=== PATIENT | female | born 1955 | race American Indian/Alaskan Native ===

== ENCOUNTER → 2024-12-21 | Outpatient (CLI) | payer MEDICARE, MEDICAID, SELFPAY ==
--- NOTE | 2024-12-21 14:39 | XR_ITS ---
Examination: Knee bilateral, 7 views Technique: Knee AP, lateral, oblique each knee 6 views, bilateral axial knees single view total 7 views Date and time of exam: December 21, 2024 1451 hours INDICATIONS: Bilateral knee pain 10 years. 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
== END | disposition home or self-care (01) ==
PROVIDERS: PCP Nurse Practitioner Family; Referring Provider Internal Medicine; Visit Provider Internal Medicine
DX: M17.0 Bilateral primary osteoarthritis of knee (principal)
CPT/HCPCS: 73564

== ENCOUNTER → 2025-02-25 | Outpatient (CLI) | payer MEDICARE, MEDICAID, SELFPAY ==
--- NOTE | 2025-02-25 16:16 | XR_ITS ---
Examination: CT brain head without contrast. 2-D sagittal coronal reconstructions Date and time of exam:February 25, 2025 1721 hours INDICATION: Patient fell one month ago with injury to the head, persistent head pain CTDI: vol (mGy):47.7 DLP: (mGycm):946 Technique: Multiple CT axial sections of the brain have been obtained, 5 mm slice thickness. Contrast has not been administered. 2-D sagittal, coronal reconstructions have been obtained Low dose protocols were performed. One or more of the following dose reduction techniques were used; automated exposure control, adjustment of the mA and/or KV according to patient size, use of iterative reconstruction technique. Findings: No significant ventricular enlargement. Intra-axial or extra-axial hemorrhage density is not seen. No mass effect or midline shift Basal cisterns are not remarkable. Fourth ventricle is midline. Cranial vault intact. Impression: Negative for acute hemorrhage, mass effect or midline shift
== END | disposition home or self-care (01) ==
LOC: CCTX 16:07
PROVIDERS: Referring Provider Physician Assistant; Visit Provider Physician Assistant
DX: S00.83XA Contusion of other part of head, initial encounter (principal); W19.XXXA Unspecified fall, initial encounter
CPT/HCPCS: 70450

== ENCOUNTER → 2025-04-14 | Outpatient (CLI) | payer MEDICARE, MEDICAID, SELFPAY ==
--- NOTE | 2025-04-14 16:13 | XR_ITS ---
Examination: Knee bilateral, 7 views Technique: Knee AP, lateral, oblique E. Zeb total 6 views, AP bilateral axial knees single view total 7 views Date and time of exam: April 14, 2025 1615 hours INDICATIONS: Bilateral knee pain 3 months. FINDINGS: Moderate osteopenia. Bilateral moderate to advanced degenerative medial joints Bilateral moderate to advanced osteoarthritis patellofemoral joints No fractures No patellar dislocations IMPRESSION: Bilateral moderate to advanced osteoarthritis medial and patellofemoral joints
== END | disposition home or self-care (01) ==
PROVIDERS: PCP Nurse Practitioner Family; Referring Provider Nurse Practitioner Family; Visit Provider Nurse Practitioner Family
DX: M17.0 Bilateral primary osteoarthritis of knee (principal)
CPT/HCPCS: 73564

== ENCOUNTER → 2025-05-24 | Outpatient (CLI) | payer MEDICARE, MEDICAID, SELFPAY ==
--- NOTE | 2025-05-24 14:52 | XR_ITS ---
Examination: Knee bilateral, 7 views Technique: Knee AP, lateral, oblique E stage total 6 views, bilateral AP knees single view total 7 views Date and time of exam: May 24, 2025 at 1458 hours INDICATIONS: Bilateral knee pain beginning 2014. FINDINGS: Bilateral moderate to advanced narrowing medial joint spaces, more severe left knee Bilateral moderate to advanced osteoarthritis patellofemoral joints. No fractures or patellar dislocations No avascular necrosis IMPRESSION: Bilateral moderate to advanced narrowing medial joint spaces Bilateral moderate to advanced osteoarthritis patellofemoral joint
== END | disposition home or self-care (01) ==
LOC: CDIM 14:42
PROVIDERS: PCP Nurse Practitioner Family; Referring Provider Nurse Practitioner Family; Visit Provider Nurse Practitioner Family
DX: M25.862 Other specified joint disorders, left knee (principal); M25.861 Other specified joint disorders, right knee; M17.0 Bilateral primary osteoarthritis of knee
CPT/HCPCS: 73564

== ENCOUNTER → 2025-08-04 | Outpatient (CLI) | payer MEDICARE, MEDICAID, SELFPAY ==
--- NOTE | 2025-08-04 10:45 | XR_ITS ---
Examination: Breast ultrasound complete, bilateral Date and time of exam: August 04, 2025, 1032 hours INDICATIONS: Mammogram 05.17 1624 mm nodule retroareolar region left breast, history left breast biopsy 2013, negative Technique: Real-time grayscale ultrasonographic imaging bilateral breasts, including all 4 quadrants as well as nipple retroareolar and axillary regions. Findings: Sonographic images right breast 1:00 cyst 5 x 3 mm 10:00 nodule circumscribed 9 x 10 mm 10:00 nodule lobular margins 9 x 13 mm 11:00 nodule lobular margins 7 x 6 mm Sonographic images left breast 1:00 cyst 7 x 7 mm No solid nodules IMPRESSION: BI-RADS Category 3: Probably benign findings 1 additional 3 to 6-month right breast sonogram follow-up is needed to document stability of multiple solid nodules right breast described above
--- NOTE | 2025-08-04 11:45 | XR_ITS ---
Examination: Diagnostic digital mammography, bilateral Computer aided detection 3-D breast Tomosynthesis, bilateral Date and time of exam: 08/04/2025, 1009 Comparisons:. January 16, 2017 Indications: History of right breast biopsy.. Mother with breast cancer Technique: Nonmagnified MLO, CC views of the breasts to been obtained, reconstructed from 3-D Tomosynthesis images. R2 computer aided detection program utilized for evaluation of suspicious masses and/or abnormal calcifications. 3-D Tomosynthesis images obtained. Findings: The breasts are heterogeneously dense, which may obscure small masses. No evidence of abnormal masses or suspicious calcifications. Stable left post biopsy marker clip Impression: BI-RADS category 2: Benign findings Recommend 1 year follow-up mammogram
--- NOTE | 2025-08-04 12:20 | XR_ITS ---
Examination: Bone densitometry Date and time of exam: August 04, 2025, September 27, 2025 INDICATIONS: Menopause beginning age 51, personal history osteopenia Technique: Lumbar spine and hip total bone mineralization values of an calculated. Peak reference and age match control results have been displayed. Findings: Lumbar spine total bone mineralization is 1.980 gm/cm2. This is 0.6 standard deviations below peak reference. This is 1.5 standard deviations above age-matched controls. Hip total bone mineralization is 0.835 gm/cm2 This is 0.9 standard deviations below peak reference. This is 0.7 standard deviations above age-matched controls Impression: There is normal mineralization based on lumbar spine measurements. There is osteopenia based on hip measurements Lumbar mineralization is increased 10.4% compared with December 14, 2015 Hip mineralization is decreased 12.3% compared with December 14, 2015
== END | disposition home or self-care (01) ==
PROVIDERS: PCP Nurse Practitioner Family; Referring Provider Nurse Practitioner Family; Visit Provider Nurse Practitioner Family
DX: R92.323 Mammographic fibroglandular density, bilateral breasts (principal); N63.11 Unspecified lump in the right breast, upper outer quadrant; M85.89 Other specified disorders of bone density and structure, multiple sites
CPT/HCPCS: 76641; 77062; 77066; 77080; G0279

== ENCOUNTER 2025-09-21 09:35 | Outpatient (AMB) | payer MEDICARE, MEDICAID, SELFPAY ==
--- NOTE | 2025-09-21 09:54 | PD.ORTHCLVIS ---
Vital signs 09/21/25 10:10 Height 1.57 m Height Method Stated Weight 83.716 kg Weight Measurement Method Standing Scale BMI 33.7 BP 98/63 Blood Pressure Source Automatic Cuff Blood Pressure Location Left Upper Arm Position Sitting Respiration 16 Pulse 72 Pulse Source Monitor Temp 97.3 F Temp Source Temporal Artery Scan Pulse Oximetry (%) 96 Oxygen Delivery Method Room Air Med/Allergies Allergies & Medications Allergies NKA* Allergy (Uncoded 09/21/25 10:11) Medication Reconciliation lisinopril 2.5 mg tablet 2.5 mg PO QDAY High Blood Pressure #0 tabs 08/18/14 [History Confirmed 09/21/25] metformin 500 mg tablet (Glucophage) 1,000 mg PO BIDAC Diabetes #0 tabs 08/18/14 [History Confirmed 09/21/25] Fluticasone/Salmeterol DISKUS * (ADVAIR DISKUS 250/50 *) 1 puff inhalation BID #0 puffs 09/06/16 [History Confirmed 09/21/25] atorvastatin 20 mg tablet (Lipitor) 20 mg PO HS #0 tabs 09/06/16 [History Confirmed 09/21/25] cholecalciferol (vitamin D3) 25 mcg (1,000 unit) capsule (Vitamin D3) 1,000 unit PO QDAY #0 tabs 09/06/16 [History Confirmed 09/21/25] loratadine 10 mg tablet (Claritin) 10 mg PO QDAY #0 tabs 09/06/16 [History Confirmed 09/21/25] montelukast 10 mg tablet (Singulair) 10 mg PO HS #0 tabs 09/06/16 [History Confirmed 09/21/25] sitagliptin phosphate 100 mg tablet (Januvia) 100 mg PO QDAY #0 tabs 09/06/16 [History Confirmed 09/21/25] glipizide 5 mg tablet 5 mg PO ACBR #0 tabs 04/22/17 [History Confirmed 09/21/25] gabapentin 300 mg capsule 300 mg PO HS #0 caps 08/11/17 [History Confirmed 09/21/25] Exam Exam Patient is in no acute distress and is cooperative with the examination today. Breathing is nonlabored. In no respiratory distress. Bilateral extremities were evaluated and demonstrates sensation intact to light touch. Palpable pedal pulses are present. No significant edema is present. Bilateral hips were examined. The patient has no pain with log roll of the hips. Internal rotation to 30 degrees and external rotation to 30 degrees is painless. Negative FADIR. The left knee was examined. The left knee is in varus alignment. Range of motion from 0-115 degrees. Knee is stable to varus and valgus as well as AP translation with <5mm. Patient has a negative McMurrays. There is no pain with patellofemoral compression and no crepitus noted. The knee is tender to palpation medially. The right knee was also examined. The right knee is in varus alignment. Range of motion from 0-120 degrees. Knee is stable to varus and valgus as well as AP translation with <5mm. Patient has a negative McMurrays. There is no pain with patellofemoral compression and no crepitus noted. The knee is tender to palpation medially. Bilateral knee x-rays demonstrates complete joint space narrowing medially with [id number] arthritis Assessment and Plan Problem List (1) Degenerative arthritis of knee, bilateral: Status: Acute Plan: Patient is a 70-year-old female with bilateral knee pain and bilateral knee arthritis. We discussed different treatment options. She would like a left knee cortisone injection today. The right knee is worse than the left and she would like to talk about surgery on the right side. I think this is a reasonable option as she has failed conservative treatment and has fagy-aw-elli arthritis. Recommend knee cortisone injection as patient would like to proceed with conservative treatment at this time. The risks and benefits of the procedure were reviewed with the patient and patient gave verbal consent to continue with the procedure. Procedure: performed by Dr. Botello Using sterile technique the left knee was thoroughly prepped with alcohol, and approximately 1 cc of Depo-Medrol 80mg/mL and 4 cc of 0.2% ropivacaine was injected without resistance into the medial tibial femoral joint space. The patient tolerated the procedure. The nature and purpose of the right total knee replacement, alternative method(s) of treatment, the material risks involved, and the possibility of complications were fully explained to the patient. The patient does NOT have any of the following contraindications to TKA: - Active infection of the knee joint, OR - Active systemic bacteremia, OR - Active skin infection or open wound at surgical site, OR - Neuropathic arthritis, OR - Severe, rapidly progressive neurological disease, OR - Severe medical condition that makes risks of surgery outweigh the potential benefit The patient was told the most common risks and complications associated with a total knee replacement include, but are not limited to: blood clots in the leg, fatal pulmonary embolism, dislocation of the prosthesis, intraoperative and postoperative fractures of the femur or tibia, infection, failure of the prosthesis or grafting materials, complications from anesthesia, reactions to blood transfusions, postoperative leg length inequality, instability of the knee replacement, nerve damage or injury, vascular injury, delayed wound healing, infection, other injury or even . In addition, there are risks associated with anesthesia given during this operation. Also, the patient was told that after undergoing a total knee replacement there may still be persistent pain or disability. The patient was informed that the success of this operation in part depends upon the mechanical devices which are going to be implanted and that these devices can fail or malfunction, and may need to be repaired or replaced and there are no guarantees as to the longevity of this device or its parts and that it or its parts could fail prematurely. The patient was also notified that during the course of surgery, there may be a need to use bone graft from donors, and that any bone graft used will be carefully screened for communicable diseases, including AIDS, hepatitis, Gavin-Creutzfeldt, or other diseases, but despite the screening procedures, there is a small chance that they could contract one of these diseases. Finally, the patient was asked to follow completely and fully with all advice and recommended treatments, and that recovery and ultimate outcome are affected by their compliance with recommended treatment. We discussed the risks, benefits and treatment alternatives, and the patient is interested in proceeding with surgery. We will try to set this up as expeditiously as possible. Advanced Care Planning Discussion Advance care planning discussed with:: patient Office Procedures GNS Level of Care Nursing/Assessment Patient Status: Initial/New Patient Nursing Assessment/Reassesment: Medication Reconciliation, Update PMH in EMR and Vital Signs Coordination of Care: Complex Care and Chronic Disease 1-5, Education Complex Pt/Fam, Consent,records obtained, informed consent, 1 Ins Authorization, Lab and Imaging orders, Results/Orders obtained and Staff clarify orders New Patient Charge New Patient Point Assignment: 1124 New Patient Point Charge: [employer] Level 4 (6337-1548) Surgical Proc/IM SQ injection Minor Surgical Procedure: Yes (KNEE INJECTION) Medication Given Medication Given Medication Given: Yes Documented Dose Given: 1 Route: Infiitration Medication Given Medication Given Medication Given: Yes Documented Dose Given: 4 Route: Infiitration Office Meds methylprednisolone acetate 80 mg/mL suspension for injection Performing Provider: Quentin Botello MD Performing Location: [facility] Administered by: Quentin Botello MD on 09/21/25 15:13 Dose Route Admin Location Dispensed Lot Number Expiration Date Package [facility] [employer] Line Worker 80 mg intra-articular 1 mL [id number] 05/29/27 [address]-2 [id number] [employer] ropivacaine (PF) 2 mg/mL (0.2 %) injection solution Performing Provider: Quentin Botello MD Performing Location: [facility] Administered by: Quentin Botello MD on 09/21/25 15:13 Dose Route Admin Location Dispensed Lot Number Expiration Date Package NDC N[employer]ing Process Line Worker 20 mL Infiltration 20 mL [id number] 02/26/27 4167-8989-79 [id number] [facility] Intake Visit Data Collection New Patient or Established: New Patient (never been to [facility]) Reason for Visit:: BL KNEE OA Seen by Clinical Staff ONLY (RN/MA): No PCP or OBGYN visit in last 3 months: Yes Hx Now: No Do You Feel Safe at Home: Yes Authorities Contacted: N/A Questionairres Past Medical History Past Medical History Have you ever been diagnosed with any of the following: Cardiology Problems Congestive Heart Failure: No Respiratory Problems Chronic Obstructive Pulmonary Disease (COPD): No Smoking: No Smoking Cessation Counseling: No Smoking Exposure: No Genital/Urinary Problems Renal Disease: No Endocrine Problems Diabetes Mellitus Type 1: No Diabetes Mellitus Type 2: Yes Subjective Visit Visit for: new patient and knee (BILATERAL) Immunization / Flu Flu Vaccine in the Last 12 Months: No Flu Vaccine Exclusion Criteria: No Exclusion Criteria History of Present Illness Chief complaint: BILATERAL OSTEOARTHRITIS KNEE Felipa is a pleasant 70-year-old female with a right greater than left knee arthritis. This has been ongoing for over 4 years. She has had over 5 injections in each knee. She was told in the past needed knee replacement but had to delay surgery as she was dealing with some health issues in her family. She reports the pain is miserable and has tried home exercises, Tylenol, and multiple injections as mentioned previously Personal History Occupation: RETIRED Pain Pain level (0-10): 7 Pain duration: CONSTANT Pain location: inside (medial), outside (lateral), anterior and posterior Pain quality: sharp Pain timing: increases with activity and stairs Associated signs & symptoms: none Ambulatory data Ambulatory device: none Treatments Number of previous injections: 10 Improvement with previous injections: No Improvement with PT: No Improvement with NSAIDS: no Review of Systems Review of Systems: All systems negative unless otherwise noted in HPI.
[2025-09-21 10:10] VITALS: BP 98/63; PULSE 72; RESP 16; TEMP 36.3; O2SAT 96; BMI 33.7
== END 2025-09-21 10:20 | disposition home or self-care (01) ==
PROVIDERS: PCP Nurse Practitioner Family; Referring Provider Nurse Practitioner Family; Supervising Provider Orthopaedic Surgery Adult Reconstructive Orthopaedic Surgery; Visit Provider Orthopaedic Surgery Adult Reconstructive Orthopaedic Surgery
DX: M17.0 Bilateral primary osteoarthritis of knee (principal); M25.562 Pain in left knee; M25.561 Pain in right knee; E11.9 Type 2 diabetes mellitus without complications; Z79.84 Long term (current) use of oral hypoglycemic drugs
CPT/HCPCS: 20610; 99204; J1010; J2795; G0463